=== PATIENT | male | born 2000 | race Caucasian/White ===

== ENCOUNTER 2020-01-01 18:35 | Outpatient (REF) | payer MEDICAID, SELFPAY ==
[2020-01-01 19:46] LABS: Albumin 4.4 g/dL (3.4-5.0); Anion Gap 10.7 mmol/L (3-11); BUN 14 mg/dL (7-18); CO2 27.3 mmol/L (21.0-32.0); CREATININE 0.92 mg/dL (0.70-1.30); Calcium 9.8 mg/dL (8.5-10.1); Chloride 101 mmol/L (98-107); Glucose 94 mg/dL (74-106); Potassium 3.9 mmol/L (3.5-5.1); Sodium 139 mmol/L (136-145)
[2020-01-01 19:51] LABS: Microalb ug/mg Crea 2.8 ug/mg Cr
[2020-01-01 20:01] LABS: PHOSPHORUS 3.9 mg/dL (2.6-4.7)
== END 2020-01-01 18:55 ==
LOC: NCHCN 18:35
PROVIDERS: PCP Internal Medicine; Visit Provider Nurse Practitioner Family
DX: Q87.81 Alport syndrome (principal)
CPT/HCPCS: 80069; 82043; 82570

== ENCOUNTER 2020-06-23 16:44 | Outpatient (REF) | payer MEDICAID, SELFPAY ==
[2020-06-23 20:42] LABS: ALT 32 U/L (16-63); AST 20 U/L (15-37); Albumin 4.6 g/dL (3.4-5.0); Alkaline Phosphatase 61 U/L (46-116); Bilirubin, Total 0.6 mg/dL (0.2-1.0); Total Protein 8.1 g/dL (6.4-8.2); Triglyceride 84 mg/dL (<150); Vitamin B12 444 pg/mL (193-986)
[2020-06-23 20:55] LABS: Bilirubin, Direct 0.14 mg/dL (0.00-0.20)
== END 2020-06-23 17:04 ==
LOC: NCHCN 16:44
PROVIDERS: PCP Internal Medicine; Visit Provider Nurse Practitioner Family
DX: R68.89 Other general symptoms and signs (principal)
CPT/HCPCS: 80076; 82607; 82746; 84478

== ENCOUNTER 2020-10-09 06:36 | Emergency (ER) | payer MEDICAID, SELFPAY ==
[2020-10-09 06:40] VITALS: BP 141/83; PULSE 81; RESP 20; TEMP 36.5; O2SAT 100
--- NOTE | 2020-10-09 06:53 | W.ED.GENAD ---
Discharge Plan Disposition Patient Disposition: HOME Condition: Good Discharge Details Clinical Impression: Contusion, Back pain Primary Care Provider: Winston Talley ED Provider: Khanh Serrato Home Meds and New Rx's Prescriptions: New cyclobenzaprine 10 mg tablet 10 mg PO TID Qty: 14 RF: 0 lidocaine [Lidoderm] 1 PATCH patch 1 patch Topical Q24H Qty: 4 RF: 0 Discharge Instructions Instructions: Back Pain (ED) Additional Instructions: At this time your signs and symptoms are clinically consistent with a back sprain and contusion. This can cause significant pain and take a fair bit of time to heal. I expect 1 to 2 months for potential resolution. In the meantime do not lift anything greater than 5 pounds for the next 2 weeks. Avoid any significant vigorous physical activity. Perform easy gentle regular activities at home without any significant bending or lifting. You have been given a prescription for Lidoderm patch. If your insurance does not cover this you can get [id number] Lidoderm patches at 4% which are almost just as effective. Please take the Flexeril as directed but do not take it when driving or operating any vehicles or heavy machinery, swimming, taking long baths, or operating firearms. Please use a heating pad as often as possible on your back. Perform daily gentle stretches on your back. Please continue to take the Tylenol and Motrin. You can take 1000 mg of Tylenol every 6 hours and 600 mg of ibuprofen every 6 hours. Your prescriptions have been sent to your [facility]. If you notice any worsening of your symptoms, or any new symptoms such as vomiting, diarrhea, fever, chills, shortness of breath, chest pain, numbness or tingling in your groin or legs, weakness in your legs, loss of control for your bowels or bladder, or fainting , please return immediately to the emergency department for reevaluation. Additionally if you do not have any improvement over the next week or so, it is reasonable to return for reassessment for potential x-rays. Please follow up with your primary care provider as soon as possible for reassessment and reevaluation. As always, it was a pleasure participating in your medical care today. Referrals: Winston Talley [Primary Care Provider] - Medical Decision Making This is a pleasant 20-year-old male who presents today for evaluation of right lower back pain. Patient states that last night he was walking when he slipped on a step and landed on the edge of his steps on his right lower back. When he woke up this morning the pain was notable. He came to the ER for further evaluation. 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 He has urinated since the initial fall and has had no hematuria. Patient denies any saddle anesthesia, numbness or tingling in the groin, change in sensation when wiping. Patient denies any change in sensation during sexual intercourse, difficulty achieving or maintaining an erection or ejaculation, bowel or bladder incontinence, leakage, or retention. Patient denies any weakness in the lower extremities, atypical falls or imbalance. He denies any abdominal pain or flank pain. He has not taken anything for the pain. No other complaints at this time. Pain is described patient achy in the right lower back. It is worse with movement and sitting upright. No urinary complaints. No abdominal complaints. Exam demonstrates a notable right paraspinal spasm, no midline tenderness whatsoever. No symptoms concerning for cauda equina syndrome. No neurologic deficits distally. He does demonstrate mild tenderness over the right paraspinal L2 area. We did discuss risks and benefits of imaging, and through shared decision-making process with no evidence of neurologic deficits we have decided together to hold off on imaging. No emergent indication at this time. Signs and symptoms are clinically consistent with contusion and subsequent muscle spasm. Potentially contusion against the transverse process of the vertebra, but no other concerning abnormality otherwise clinically. No clinical or historical evidence to suggest renal damage, or abdominal pathology. Will give Lidoderm patch, Toradol, Flexeril for home use. Recommend continue Tylenol and Motrin. Discussed red flags which return. I have extensively reviewed the treatment plan and discharge instructions with the patient. I have addressed all patient concerns at this time. The patient was made aware of what symptoms to monitor for that would warrant a return to the emergency department. Discussed the plan with the patient, they demonstrate verbal understanding and agreement with our assessment and plan at this time. The documentation in this chart was dictated using [employer] dictation software. Please excuse any dictation errors. HPI General Date/Time Provider Initiated Documentation: 10/09/20 06:37. HPI Narrative: This is a pleasant 20-year-old male who presents today for evaluation of right lower back pain. Patient states that last night he was walking when he slipped on a step and landed on the edge of his steps on his right lower back. When he woke up this morning the pain was notable. He came to the ER for further evaluation. 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 He has urinated since the initial fall and has had no hematuria. Patient denies any saddle anesthesia, numbness or tingling in the groin, change in sensation when wiping. Patient denies any change in sensation during sexual intercourse, difficulty achieving or maintaining an erection or ejaculation, bowel or bladder incontinence, leakage, or retention. Patient denies any weakness in the lower extremities, atypical falls or imbalance. He denies any abdominal pain or flank pain. He has not taken anything for the pain. No other complaints at this time. Pain is described patient achy in the right lower back. It is worse with movement and sitting upright. No urinary complaints. No abdominal complaints. Related Data Home Medications Medication Instructions Recorded Confirmed cyclobenzaprine 10 mg PO TID #14 tab 10/09/20 lidocaine [Lidoderm] 1 patch TOPICAL Q24H #4 ea 10/09/20 Previous Rx's Medication Instructions Recorded cyclobenzaprine 10 mg PO TID #14 tab 10/09/20 lidocaine [Lidoderm] 1 patch TOPICAL Q24H #4 ea 10/09/20 General Stated Complaint: Orthopedic JASMEET: 4 Review of Systems All systems reviewed & are unremarkable except as noted in HPI and below PFSH Social History Smoking/Tobacco Use Status: Current every day Tobacco Type: smokeless tobacco Smoking risk assessment performed?: Yes Alcohol Intake: current Alcohol Intake frequency: a few times a week Alcohol type: beer Substance use type: does not use Do you feel safe at home: Yes Do you feel safe in your relationship?: Yes Exam Narrative Exam Narrative: 1.Const: Well-nourished, Well-developed, appearing stated age 2.Eyes: PERRL, no conjunctival injection, and symmetrical lids. 3.ENT: Atraumatic external nose and ears. Moist MM. Neck: Symmetric, trachea midline, No thyromegaly. 4.CVS: +S1/S2, No murmurs or gallops. Peripheral pulses 2+ and equal in all extremities. Brisk capillary refill in all extremities. 5.RESP: Unlabored respiratory effort. Clear to auscultation bilaterally. No wheezes rales or rhonchi 6.GI: Soft, Nontender/Nondistended, No hepatosplenomegaly. No guarding or rebound. 7.MSK: Normocephalic, Extremities w/o deformity or ttp No cyanosis or clubbing, Normal movement of all extremities No midline tenderness to palpation over the CTLS spine. Normal ROM in flexion, extension, side bend, and rotation. Patient has +5 out of 5 strength in the lower extremities in dorsiflexion and plantarflexion, knee flexion and extension, hip flexion and extension. Normal strength for dorsiflexion and plantar flexion of the great toe bilaterally. There is +2 over 2 dorsalis pedis pulses bilaterally. There is normal sensation to the skin with light touch at the foot, knee, and hip. Normal saddle sensation. Good sensation over the deep sural nerve area bilaterally. Rectal exam demonstrates good rectal tone and perirectal sensation. Reflexes are +2 over 4 in the patellar reflex bilaterally. +5 out of 5 strength in the medial, ulnar, radial nerve distribution bilaterally in the hands as well as intact light touch sensation to these dermatomes on the hands. Patient has notable right paraspinal & mild point tenderness at the right paraspinal component at L2. No flank or CVA tenderness otherwise. No rib tenderness. 8.Skin: Warm, Dry. No rashes or lesions. 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 Sensation grossly intact, no focal neurologic deficits. 10.Psych: (AAO) x3. Appropriate mood and affect Course Vital Signs Vital signs: Vital Signs Temperature 36.5 C 10/09/20 06:40 Pulse 81 10/09/20 06:40 Respiratory Rate 20 10/09/20 06:40 Blood Pressure 141/83 H 10/09/20 06:40 Pulse Oximetry 100 10/09/20 06:40 Temperature 36.5 C 10/09/20 06:40 Pulse 81 10/09/20 06:40 Respiratory Rate 20 10/09/20 06:40 Respiratory Effort Non-Labored 10/09/20 06:43 Blood Pressure 141/83 H 10/09/20 06:40 Pulse Oximetry 100 10/09/20 06:40 Oxygen Delivery Method Room Air 10/09/20 06:40 Oxygen Flow Rate 0 10/09/20 06:40 Pain Level 10 10/09/20 06:46
[2020-10-09 07:27] VITALS: BP 125/77; PULSE 80; RESP 12; TEMP 36.6; O2SAT 96
== END 2020-10-09 07:28 | disposition home or self-care (01) ==
PROVIDERS: Emergency Provider Student in an Organized Health Care Education/Training Program; PCP Internal Medicine
DX: S30.0XXA Contusion of lower back and pelvis, initial encounter (principal); S33.5XXA Sprain of ligaments of lumbar spine, initial encounter; W10.8XXA Fall (on) (from) other stairs and steps, initial encounter; M62.830 Muscle spasm of back
CPT/HCPCS: 99283

== ENCOUNTER 2020-10-10 09:42 | Emergency (ER) | payer MEDICAID, SELFPAY ==
--- NOTE | 2020-10-10 09:45 | ED.GENADUL_ITS ---
Discharge Plan Disposition Patient Disposition: HOME Condition: Stable Discharge Details Clinical Impression: Fracture of transverse process of lumbar vertebra, Back pain, Muscle spasm Primary Care Provider: Winston Talley ED Provider: Alyson Tobias Home Meds and New Rx's Prescriptions: New diazepam [Valium] 5 mg tablet 5 mg PO TID PRN (Reason: muscle spasm) Qty: 7 RF: 0 methocarbamol 750 mg tablet 1,500 mg PO QID PRN (Reason: pain) Qty: 20 RF: 0 Continued cyclobenzaprine 10 mg tablet 10 mg PO TID Qty: 14 RF: 0 lidocaine [Lidoderm] 1 PATCH patch 1 patch Topical Q24H Qty: 4 RF: 0 Discharge Instructions Instructions: Muscle Spasm (ED), Back Pain (ED) Additional Instructions: Encourage water intake. Please continue with Tylenol and/or ibuprofen as needed for discomfort. You may augment this with the Valium as needed to help with muscle spasm. Please only use this for the neck few days as necessary as this can be sedating and addictive medication. Do not drive will take this medication. Once the severe pain has began to diminish, you may transition to the methocarbamol as prescribed. Please continue to encourage frequent ambulation. Please follow-up with your primary care in 1 week for reevaluation. If you develop sensory change, change in bowel or bladder habits or other new/worsening symptoms please seek care urgently once again. Please avoid any lifting over 5 pounds. Avoid strenuous activity. Stand Alone Forms: Physical Therapy Referral Referrals: Winston Talley [Primary Care Provider] - Discharge Data Discharge Date/Time-TO BE ENTERED AT DEPARTURE: 10/10/20 11:39 Medical Decision Making Patient is a pleasant 20-year-old male presented with chief complaint of back pain. He was seen here last night for the same. Please review Dr. Serrato's note regarding initial presentation. States that this morning pain is worse. Had difficulty sleeping last night. Reports he has been awake since 2 AM secon ki to pain. He states that he has been following Dr. Ott's recommendations and ambulating frequently. Last took his Flexeril at 9:00, took Tylenol at the same time. Reports he has been alternating between Tylenol and ibuprofen. Pain initially began after he fell on a gun cabinet landing on the edge if it. He continues to deny any numbness or tingling, no sensation changes, no radiating pain, no weakness. On exam, patient appears uncomfortable. Blood pressure is elevated 154/93. Hea rt rate of 125. Patient ambulate with an antalgic gait. No saddle paresthesias. He has good strength in bilateral lower extremities. Minimal movement of his back secondary to pain along the right side. He does have significant spasm palpated along the right side of his lumbar spine. No midline tenderness patient is exquisitely tender along the paraspinal region. Patient does not exhibit any evidence to suggest cauda equina. No CVA tenderness. No rash. Patient I again discussed imaging. At this time, patient would like to move forward with imaging. I am concerned for potential paraspinal fracture. We will give the patient Valium and Toradol. We will replace his Lidoderm patch. CT reviewed by myself. I do note a transverse process fracture. Discussed with the patient. Reevevaluated. He was able to ambulate to bathroom and does appear to be moving much more comfortably. He feels pain is greatly diminished after above intervention. Will obtain post void residual. Plan to have him follow-up with primary care regarding fracture. Reiterated recommendations for forth by Dr. Serrato including Tylenol, ibuprofen, lidocaine patch. Encourage frequent ambulation. We will continue Valium initially with plan to transition to methocarbamol. Discussed the risks associated with use of Valium. Advised he should not drive while taking this medication. Post void residual 5cc. No evidence of cauda equina, nerve entrapment or other emergent etiology at this time. He is ambulating much better. D/C'ed home with above recommendations. He will f/u with PCP this week. Discussed activities he should avoid. REturn precautions discussed. All of his questions/concerns were addressed, he is in agreement with this plan. HPI General Mode of arrival: ambulatory . Date/Time Provider Initiated Documentation: 10/10/20 09:42 . Limitations to Documentation: no limitations . Information obtained by: patient, RN notes reviewed and old records reviewed . History of Present Illness 20 year old M presents to the emergency department with the chief complaint of right sided back pain, described as severe, with intensity rated at 10. Quality is described as aching and sharp, and is localized to the back. Patient reports no radiation. Patient started experiencing this day(s) (2) and it has been constant. Immobilization improves symptom(s), Movement worsens symptoms . Patient notes no other symptoms. and other (denies change in bowel/bladder habits, no sensory changes); denies rash and weakness. Patient did receive the following treatments prior to arrival, other (APAP and Flexeril) Related Data Home Medications Medication Instructions Recorded Confirmed cyclobenzaprine 10 mg PO TID #14 tab 10/09/20 10/10/20 lidocaine [Lidoderm] 1 patch TOPICAL Q24H #4 ea 10/09/20 10/10/20 diazepam [Valium] 5 mg PO TID PRN #7 tab 10/10/20 methocarbamol 1,500 mg PO QID PRN #20 tab 10/10/20 Previous Rx's Medication Instructions Recorded cyclobenzaprine 10 mg PO TID #14 tab 10/09/20 lidocaine [Lidoderm] 1 patch TOPICAL Q24H #4 ea 10/09/20 diazepam [Valium] 5 mg PO TID PRN #7 tab 10/10/20 methocarbamol 1,500 mg PO QID PRN #20 tab 10/10/20 Allergies Allergy/AdvReac Type Severity Reaction Status Date / Time No Known Allergies Allergy Unverified 10/10/20 09:58 General JASMEET: 4 Review of Systems Constitutional Constitutional: Reports as per HPI, Denies chills, Denies fatigue, Denies fever(s), Denies frequent falls and Denies headache(s) Eyes Eyes: Denies change in vision ENT Ears, Nose, Mouth, and Throat: Denies headache(s) Cardiovascular Cardiovascular: Denies chest pain, Denies dyspnea and Denies dyspnea on exertion Respiratory Respiratory: Denies cough, Denies dyspnea and Denies dyspnea on exertion Gastrointestinal Gastrointestinal: Denies abdominal pain, Denies change in bowel habits and Denies fecal incontinence Genitourinary Genitourinary: Reports as per HPI, Denies urinary hesitancy and Denies urinary incontinence Musculoskeletal Musculoskeletal: Reports as per HPI, Reports back pain, Denies muscle weakness, Denies numbness, Denies radiating pain into limb, Reports stiffness and Denies tingling Integumentary/Breasts Skin/Breast: Reports as per HPI and Denies rash Neurologic Neurologic: Reports as per HPI, Denies frequent falls, Denies headache(s), Denies localized weakness, Denies numbness, Denies radicular pain, Denies sensory deficit, Denies tingling and Denies paresthesias Endocrine Endocrine: Denies fatigue [facility] Social History Smoking/Tobacco Use Status: Current every day Tobacco Type: smokeless tobacco Smoking risk assessment performed?: Yes Alcohol Intake: current Alcohol Intake frequency: a few times a week Alcohol type: beer Substance use type: does not use Do you feel safe at home: Yes Do you feel safe in your relationship?: Yes Exam Const General: cooperative, healthy appearing, uncomfortable, no acute distress, well developed and well groomed Nutritional Appearance: average body habitus and well nourished Orientation: alert and awake Eyes General: appearance normal, both eyes and all related structures Neck Neck: normal visual inspection, full ROM, no lymphadenopathy and no meningeal signs Resp Effort & Inspection: normal respiratory effort and able to speak in complete sentences Auscultation: clear to auscultation bilaterally, no rales, no rhonchi and no wheezes Cardio Rate: regular rate Rhythm: regular rhythm Heart Sounds: S1 normal and S2 normal GI Inspection: normal to inspection Palpation: soft and nontender Back/Spine/Pelvis Back: no CVA tenderness Thoracic/Lumbar Spine: thoracic and lumbar spine normal to inspection, No thoraco-lumbar ROM normal, No straight leg raise negative bilaterally (unable to perform secondary to pain), No mass, pain with thoraco-lumbar ROM, paraspinal tenderness (severe pain with palpation along right lumbar spine), thoraco-lumbar ROM limited, thoraco-lumbar spasm (as drawn below), No thoracic spinal tenderness and No lumbar spinal tenderness (no midline tenderness) Pelvis: no pain with anterior-posterior compression, no pain with lateral compression and no buttock ecchymosis Sacroiliac joints: bilaterally nontender Back/spine/pelvis image: 1. area of pain Skin General skin exam: no rashes or lesions noted Neuro General: patient alert and patient awake Cognition: normal cognition Speech: speech normal Gait: antalgic Motor: muscle tone normal throughout, strength 5/5 throughout, no movement abnormalities noted and no fasciculations Sensory Exam: no sensory deficits noted (no saddle paresthesias) DTR's: Rt Patellar: 2+, Lt Patellar: 2+, Rt Ankle: 2+ and Lt Ankle: 2+ Extrem General: normal to inspection, full ROM, capillary refill normal, no joint enlargement, no pedal edema, no calf tenderness and normal gait Psych Appearance: grossly normal and well kempt Mental Status: mental status grossly normal Speech and Movement: speech and movement normal
[2020-10-10 09:54] VITALS: BP 154/93; PULSE 125; RESP 16; TEMP 36.6; O2SAT 98
--- NOTE | 2020-10-10 10:00 | DI.CT_ITS ---
EXAM: CT LUMBAR SPINE WO CLINICAL HISTORY: trauma, right sided pain L1- L4 region TECHNIQUE: COMPARISON: No exams were available for comparison FINDINGS: CT examination of the lumbosacral spine was performed according to the usual protocol. There are 6 l umbar type vertebral bodies. There are right transverse process fractures of L 2 and L3. No additio nal fracture identified. Intervertebral disc spaces are well maintained. No gross disc herniation b iceps CT criteria. Urinary bladder is distended. Grossly unremarkable appearance of visualized portions of the lungs, l iver, spleen, and kidneys. Abdominal aorta is of normal diameter. IMPRESSION: Transverse process fractures on the right as described above, L2 and L3. RADIATION DOSE DELIVERED: 596.42mGy.cm Total DLP RADIATION OPTIMIZATION: All CT scans at this facility use at least one of these dose optimization te chniques: automated exposure control; mA and/or kV adjustment per patient size (includes targeted exa ms where dose is matched to clinical indication); or iterative reconstruction.
[2020-10-10] MEDS: diazePAM 5 MG TAB PO (10:24)
[2020-10-10] MEDS: Lidocaine 5% Patch 1 PATCH TP (10:24)
[2020-10-10] MEDS: Ketorolac 60 MG/2 ML VIAL IM (10:24)
--- NOTE | 2020-10-10 11:04 | DI.VRAD_ITS ---
Addendum created by Ata Mac DO on 10/10/2020 11:18:35 AM EDT: Upon second review, there is a nondisplaced fracture of the right transverse process of L1 (image 36 series 3). Initial report created on 10/10/2020 11:04:40 AM EDT: PROCEDURE INFORMATION: Exam: CT Lumbar Spine Without Contrast Exam date and time: 10/10/2020 10:48 AM Age: 20 years old Clinical indication: Injury or trauma; Fall; Blunt trauma (contusions or hematomas); Injury date: 10/08/20; Injury details: Trauma, right sided pain l1-l4 region TECHNIQUE: Imaging protocol: Computed tomography images of the lumbar spine without contrast. COMPARISON: No relevant prior studies available. FINDINGS: Vertebrae: There is no acute fracture or subluxation. There is normal alignment. Vertebral body heights are maintained. Facets are normally located. Discs/Spinal canal/Neural foramina: Intervertebral disc spaces are normal. Other bones/joints: Posterior elements are intact. Soft tissues: Unremarkable. IMPRESSION: No acute fracture or subluxation. Dictated and Authenticated by: Ata Mac MD. Ordering:RADHA Shields MD
--- NOTE | 2020-10-10 11:43 | NUR.NOTE ---
Nursing Note: bladder scan reveals 5cc x 2 when performed. pt reports I did pee a lot and don't feel like I have to anymore.
== END 2020-10-10 11:39 | disposition home or self-care (01) ==
PROVIDERS: Emergency Provider Physician Assistant; PCP Internal Medicine
DX: S32.028A Other fracture of second lumbar vertebra, initial encounter for closed fracture (principal); S32.038A Other fracture of third lumbar vertebra, initial encounter for closed fracture; W18.30XA Fall on same level, unspecified, initial encounter; M62.830 Muscle spasm of back
CPT/HCPCS: 96372; 99284; 72131; 99283; J1885

== ENCOUNTER 2021-06-30 15:13 | Outpatient (REF) | payer MEDICAID, SELFPAY ==
[2021-07-02 13:58] LABS: COVID-19 RT-PCR UVMMC Result Negative (Negative)
== END 2021-06-30 15:14 | disposition home or self-care (01) ==
LOC: NCHCN 15:13
PROVIDERS: PCP Internal Medicine; Visit Provider Nurse Practitioner Family
DX: Z20.822 Contact with and (suspected) exposure to COVID-19 (principal)
CPT/HCPCS: U0003